=== PATIENT | female | born 1955 | race Caucasian/White ===

== ENCOUNTER → 2016-08-03 | Outpatient (CLI) | payer OTHER ==
--- NOTE | ~2016-08-03 | MR17 ---
[facility] A Service of [facility] & [facility] RADIOLOGY TEXT RESULTS PATIENT: AUTUMN ALMANZAR LOCATION: [facility] : 55 UNIT #: [id number] AGE: [address]: OSCAR RAMOS MD SEX: F ORDER DR: [id number] [facility] [address] [place], [place] [address] [id number] O MR#: [id number] Acc #: [id number] NAME: AUTUMN ALMANZAR : 1955 SEX: F STUDY DATE/TIME: 08/03/2016 9:09 UNIT: [facility] ROOM: STUDY DESCRIPTION: MR Brain WWo Contrast Attending Physician: Oscar Ramos M.D. Referring Physician: Oscar Ramos M.D. Ordering Physician: Oscar Ramos M.D. Primary Care Physician: Oscar Ramos M.D. MRI CENTER REPORT This report is preliminary unless electronic signature is present. EXAM MRI of the brain with and without contrast dated 08/03/2016 COMPARISON MRI of the brain with and without contrast dated 06/01/2015 HISTORY Patient was diagnosed meningioma in 2011. Followup. FINDINGS Multisequence multiplanar imaging of the brain was obtained with and without contrast. GFR measured 57. 16 mL of MultiHance was administered intravenously. No acute stroke, hydrocephalus, hemorrhage or midline shift. The known right frontal extraaxial mass is again seen and it measures 1.3 x 1.0 x 1.4 cm. Stable. No edema is seen in the adjacent brain parenchyma. The sella with the pituitary gland demonstrates a partially empty sella. Stable. Pineal region, upper cervical spine, internal auditory canals with the inner ear structures are unremarkable. Severe left maxillary, moderate right maxillary, moderate left sphenoid, mild right sphenoid, mild left ethmoid, severe left frontal sinus mucosal thickening are noted with nasal septal deviation to the left. Imaged orbits and the ocular structures and mastoids are unremarkable. IMPRESSION 1. No significant interval change intracranially. 2. Stable 1.4 cm extraaxial mass in the lateral aspect of the right frontal region. It is most suggestive of a stable meningioma. 3. Varying degrees of paranasal sinus mucosal thickening is noted, severe in the left frontal and left maxillary sinuses. Correlate with sinusitis. 4. Partially empty sella. Dictated by... [facility] A Service of [facility] RADIOLOGY TEXT RESULTS PATIENT: AUTUMN ALMANZAR LOCATION: [facility] : 55 UNIT #: [id number] AGE: [address]: OSCAR RAMOS MD SEX: F ORDER DR: Tatum Anderson M.D. THIS IS AN ELECTRONICALLY VERIFIED REPORT Tatum Anderson M.D. at 08/03/2016 4:26 PM LEDA/mushtaq TD: 08/03/2016 14:56 JOB #: [id number] MRI CENTER REPORT Page 1 of 1 COPY
[2016-08-03 09:12] LABS: POC - CREATININE 1.05 mg/dL (0.44-1.03)
== END | disposition home or self-care (01) ==
LOC: CMRI 07:39
PROVIDERS: Internal Medicine
DX: D32.9 Benign neoplasm of meninges, unspecified (principal); G93.89 Other specified disorders of brain; J34.89 Other specified disorders of nose and nasal sinuses; E23.6 Other disorders of pituitary gland
CPT/HCPCS: 70553; 82565; A9577

== ENCOUNTER → 2016-11-28 | Outpatient (CLI) | payer OTHER ==
[2016-11-28 16:14] LABS: BASOPHIL# 0.1 X10e3 (0-0.3); DIFF IND NO; EOSINOPHIL# 0.1 X10e3 (0-0.7); EOSINOPHIL% 0.7 % (0.0-7.0); HEMATOCRIT 38.2 % (35.0-45.0); LYMPHOCYTE# 4.1 X10e3 (1.0-3.5); LYMPHOCYTE% 38.8 % (17.0-45.0); MEAN CELL VOLUME 88.7 FL (83-96); MEAN CORPUSCULAR HEMOGLOBIN 30.2 PG (28-34); MEAN PLATELET VOLUME 7.9 FL (6.5-11.5); MONOCYTE# 0.5 X10e3 (0-1.0); MONOCYTE% 4.9 % (3.0-12.0); NEUTROPHIL# 5.8 X10e3 (1.5-7.1); NEUTROPHIL% 54.6 % (40-75); PLATELET COUNT 257 X10e3 (140-420); RED BLOOD COUNT 4.31 X10e (3.90-5.30); RED CELL DISTRIBUTION WIDTH 13.8 % (11.0-15.5); WHITE BLOOD COUNT 10.6 X10e3 (4.0-10.5)
[2016-11-28 16:46] LABS: BILIRUBIN,TOTAL 0.8 mg/dL (0.2-2.0); CALCIUM SERUM 9.4 mg/dL (8.4-10.2); GLOM FILT RATE Estimated 60.8 mL/min (>60); POTASSIUM 4.3 mmol/L (3.5-5.1)
== END | disposition home or self-care (01) ==
LOC: CLAB 15:46
DX: M79.7 Fibromyalgia (principal); R53.83 Other fatigue
CPT/HCPCS: 80053; 84443; 85025